=== PATIENT | male | born 1975 | race Caucasian/White ===

== ENCOUNTER 2017-03-21 19:56 | Emergency (ER) | payer MEDICAID ==
[~2017-03-21] VITALS: Ht 172.7 cm; Wt 65.8 kg
[~2017-03-21 19:56] MED LIST: ACETAMINOPHEN-1 EAC1 ORAL; DOXYCYCLINE MO100 MG ORAL; IBUPROFEN800 MG ORAL; NORCO 5-325 TA1 EACH PO
[2017-03-21 20:05] VITALS: BP 117/79
[2017-03-21] MEDS ORDERED: triumeq (20:06)
[2017-03-21] MEDS ORDERED: Mylanta II UD 30ml ORAL ONE (20:45)
[2017-03-21] MEDS ORDERED: Ranitidine 50mg/2ml Inj IV ONE (20:45)
[2017-03-21] MEDS ORDERED: Dicyclomine HCl 10mg/5ml oral soln ORAL ONE (20:45)
[2017-03-21] MEDS ORDERED: Lidocaine 2% Visc 15ml soln ORAL ONE (20:45)
[2017-03-21 21:26] LABS: MEAN CORPUSCULAR HEMOGLOBIN 29.5 PG (27.0-31.0); MEAN CORPUSCULAR HGB CONC 32.8 G/DL (32.0-36.0); MEAN CORPUSCULAR VOLUME 90 FL (80-99); MEAN PLATELET VOLUME 9.9 FL (6.5-10.1); PLATELET COUNT 98 K/UL (150-450); RED BLOOD COUNT 3.23 M/UL (4.70-6.10); RED CELL DISTRIBUTION WIDTH 13.8 % (11.6-14.8); WHITE BLOOD COUNT 2.2 K/UL (4.8-10.8)
[2017-03-21 21:46] LABS: ALANINE AMINOTRANSFERASE 11 U/L (3-41); ALBUMIN/GLOBULIN RATIO 0.7 (1.0-2.7); AMYLASE 90 U/L (10-110); ANION GAP 13 (5-15); ASPARTATE AMINO TRANSFERASE 18 U/L (5-40); CALCIUM 8.1 mg/dL (8.6-10.2); CARBON DIOXIDE 29 mEQ/L (20-30); CHLORIDE 98 mEQ/L (98-107); CREATININE 1.1 mg/dL (0.7-1.2); GLOMERULAR FILTRATION RATE > 60 mL/min (>60); HEMOLYSIS 6; LIPASE 22 U/L (< 60); SODIUM 140 mEQ/L (135-145); TOTAL PROTEIN 7.1 g/dL (6.6-8.7)
[2017-03-21 22:05] VITALS: BP 115/74
[2017-03-21] MEDS ORDERED: NYSTATIN100000 UN1 ORAL (22:21)
[2017-03-21] MEDS ORDERED: ZITHROMAX250 MG ORAL (22:21)
[2017-03-21] MEDS ORDERED: TYLENOL EXTRA500 MG ORAL (22:21)
[2017-03-21 22:22] LABS: ANISOCYTOSIS 1+; BAND NEUTROPHILS % (MANUAL) 0 % (0-8); BASOPHILS % (MANUAL) 0 % (0-2); EOSINOPHILS % (MANUAL) 4 % (0-3); HYPOCHROMASIA 1+; LYMPHOCYTES % (MANUAL) 31 % (20-45); NEUTROPHILS % (MANUAL) 56 % (45-75); PLATELET ESTIMATE DECREASED; PLATELET MORPHOLOGY NORMAL; TOTAL CELLS COUNTED 100
[2017-03-21 22:40] VITALS: BP 121/79
--- NOTE | 2017-03-22 12:03 | Diagnostic Imaging Report ---
Indication: Chest pain Technique: Single portable AP view of the chest. Findings: Comparison: 12/11/2012 The bones and extra pulmonary soft tissues, cardiomediastinal silhouette, pulmonary vasculature and parenchyma, and pleural surfaces remain unremarkable. IMPRESSION: Negative portable AP chest, unchanged.
--- NOTE | 2017-03-22 13:24 | Emergency Room Report ---
History of Present Illness General Chief Complaint: Sore Throat Source: Patient Present Illness HPI The patient is a 41-year-old male with a history of AIDS presenting for pain with swallowing for the past 2 weeks. pain is described to the throat and radiates to the mid chest.He denies history of GERD. Pain is worse with swallowing and laying down. He denies difficulty swallowing. He denies regurgitation, nausea, vomiting, F, chills, COE, SOB, cough Allergies: Coded Allergies: SULFAMETHOXAZOLE (Verified Allergy, Intermediate, Hives, 03/21/17) TRIMETHOPRIM (Verified Allergy, Intermediate, Hives, 03/21/17) Patient History Past Medical History: see triage record Pertinent Family History: none Reviewed Nursing Documentation: PMH: Agreed, PSxH: Agreed Nursing Documentation-PMH Hx Cardiac Problems: Yes - AIDS Hx Gastrointestinal Problems: Yes - hiv Review of Systems All Other Systems: negative except mentioned in HPI Physical Exam Vital Signs Date Time Temp Pulse Resp B/P Pulse Ox O2 Delivery O2 Flow Rate FiO2 03/21/17 20:01 98.1 105 16 117/79 97 Room Air Sp02 EP Interpretation: reviewed, normal General Appearance: no apparent distress, alert, GCS 15, non-toxic, cachetic Head: normocephalic, atraumatic Eyes: bilateral eye PERRL, bilateral eye normal inspection ENT: hearing grossly normal, normal pharynx, no angioedema, normal voice, uvula midline, moist mucus membranes Neck: full range of motion, supple/symm/no masses Respiratory: chest non-tender, lungs clear, normal breath sounds, speaking full sentences Medical Decision Making PA Attestation Dr. Grover is my supervising physician. Patient management was discussed with my supervising physician Diagnostic Impression: Primary Impression: Odynophagia ER Course The patient is a 41-year-old male with a history of AIDS presenting for pain with swallowing DDx considered but not limited to: GERD, esophagitis, pharyngitis, candidal infection, among others PE: vitals WNL. Afebrile. NAD HEENT unremarkable. No tonsillar edema or exudate. Mucus membranes moist. Lungs CTA bilat. Skin warm and dry. No rash Pt is given GI cocktail and zantac with no change in symptoms. Blood work unremarkable The pt is DC'ed home with prescription for nystatin and azithromycin and needs to FU with PMD [facility]. He states he has an appt tomorrow. ER precautions given Laboratory Tests Test 03/21/17 21:03 White Blood Count 2.2 K/UL (4.8-10.8) L Red Blood Count 3.23 M/UL (4.70-6.10) L Hemoglobin 9.5 G/DL (14.2-18.0) L Hematocrit 29.1 % (42.0-52.0) L Mean Corpuscular Volume 90 FL (80-99) Mean Corpuscular Hemoglobin 29.5 PG (27.0-31.0) Mean Corpuscular Hemoglobin Concent 32.8 G/DL (32.0-36.0) Red Cell Distribution Width 13.8 % (11.6-14.8) Platelet Count 98 K/UL (150-450) L Mean Platelet Volume 9.9 FL (6.5-10.1) Neutrophils (%) (Auto) % (45.0-75.0) Lymphocytes (%) (Auto) % (20.0-45.0) Monocytes (%) (Auto) % (1.0-10.0) Eosinophils (%) (Auto) % (0.0-3.0) Basophils (%) (Auto) % (0.0-2.0) Differential Total Cells Counted 100 Neutrophils % (Manual) 56 % (45-75) Lymphocytes % (Manual) 31 % (20-45) Monocytes % (Manual) 9 % (1-10) Eosinophils % (Manual) 4 % (0-3) H Basophils % (Manual) 0 % (0-2) Band Neutrophils 0 % (0-8) Platelet Estimate Decreased L Platelet Morphology Normal Hypochromasia 1+ Anisocytosis 1+ Sodium Level 140 mEQ/L (135-145) Potassium Level 3.0 mEQ/L (3.4-4.9) L Chloride Level 98 mEQ/L (98-107) Carbon Dioxide Level 29 mEQ/L (20-30) Anion Gap 13 (5-15) Blood Urea Nitrogen 14 mg/dL (7-23) Creatinine 1.1 mg/dL (0.7-1.2) Estimate Glomerular Filtration Rate > 60 mL/min (>60) Glucose Level 92 mg/dL (74-106) Calcium Level 8.1 mg/dL (8.6-10.2) L Total Bilirubin < 0.2 mg/dL (0.0-1.2) Aspartate Amino Transferase (AST) 18 U/L (5-40) Alanine Aminotransferase (ALT) 11 U/L (3-41) Alkaline Phosphatase 75 U/L (40-129) Total Protein 7.1 g/dL (6.6-8.7) Albumin 3.1 g/dL (3.5-5.2) L Globulin 4.0 g/dL Albumin/Globulin Ratio 0.7 (1.0-2.7) L Amylase Level 90 U/L (10-110) Lipase 22 U/L (< 60) Lab Results Impression CBC, CMP unremarkable. No leukocytosis. No significant change from lat results. Chest X-Ray Diagnostic Results Chest X-Ray Ordered: Yes # of Views/Limited/Complete: 1 View Interpretation: no consolidation, no effusion, no pneumothorax, no acute cardiopulmonary disease Indication: Chest Pain Impression: No acute disease Date Electronically Signed: Mar 22, 2017 Time Electronically Signed: 14:20 Interpreting ER Physician: Dr. Reilly ALAN Scribe Text I am acting as scribe for my supervising physician. My supervising physician's interpretation of the chest xrays are there is no consolidation, no effusion, no acute cardiopulmonary disease, no pneumothorax Last Vital Signs Date Time Temp Pulse Resp B/P Pulse Ox O2 Delivery O2 Flow Rate FiO2 03/21/17 22:40 98.1 103 17 121/79 98 Room Air Status: improved Disposition: HOME, SELF-CARE Condition: Improved Scripts Acetaminophen* (TYLENOL EXTRA STRENGTH*) 500 Mg Tablet 500 MG ORAL Q8H Y for Prn Headache/Temp > 101, #30 TAB 0 Refills Prov: TERZIAN,WENDY P.A. 03/21/17 Azithromycin* (ZITHROMAX*) 250 Mg Tablet 250 MG ORAL DAILY, #6 TAB 0 Refills Take two tables once daily for 1 day, then one tablet once daily for 4 days. Prov: TERZIAN,WENDY P.A. 03/21/17 Nystatin* (NYSTATIN*) 100,000 Unit/1 Ml Oral.susp 20 ML ORAL FOUR TIMES A DAY for 10 Days, ML Swish in the mouth and retain for as long as possible (several minutes) before swallowing Prov: TERZIAN,WENDY P.A. 03/21/17 Patient Instructions: Dysphagia, Sore Throat Additional Instructions: I discussed my findings with the patient. All questions and concerns have been answered. Treatment and medication compliance have been addressed. The patient is to followup with primary doctor as soon as possible. The patient states he has an appointment tomorrow. These return to the emergency department if you experience fever, chills, rash, cough, shortness of breath, or for any reason WENDY HOLDEN Mar 22, 2017 13:24
== END 2017-03-21 21:40 | disposition home or self-care (01) ==
LOC: EMR 20:30
DX: R13.10 Dysphagia, unspecified (principal); B20 Human immunodeficiency virus [HIV] disease; Z88.2 Allergy status to sulfonamides; Z88.1 Allergy status to other antibiotic agents
CPT/HCPCS: 36415; 71010; 80053; 82150; 83690; 85007; 85025; 96374; 96375; 99284; J2780; J7040